=== PATIENT | male | born 1985 | race Caucasian/White ===

== ENCOUNTER 2016-10-19 22:20 | Emergency (ER) | payer SELFPAY | END 2016-10-19 23:10 | disposition left against medical advice (07) | LOC: ER1 22:20 | DX: Z53.21 Procedure and treatment not carried out due to patient leaving prior to being seen by health care provider (principal) ==

== ENCOUNTER 2016-12-15 22:23 | Emergency (ER) | payer OTHER | END 2016-12-16 00:05 | disposition home or self-care (01) | LOC: ER1 22:23 | DX: S61.552A Open bite of left wrist, initial encounter (principal); W54.0XXA Bitten by dog, initial encounter; Y92.009 Unspecified place in unspecified non-institutional (private) residence as the place of occurrence of the external cause; Z23 Encounter for immunization | CPT/HCPCS: 90714; 96372; 99283; J0690 ==

== ENCOUNTER → 2021-10-14 | Outpatient (CLI) | payer SELFPAY ==
[~2021-10-14] MED LIST: OMNICEF 300 MG300 MG PO
== END ==
LOC: HEART CORB 10:30
DX: R07.2 Precordial pain (principal); I10 Essential (primary) hypertension; E78.5 Hyperlipidemia, unspecified; R00.0 Tachycardia, unspecified; Z86.16 Personal history of COVID-19; I08.8 Other rheumatic multiple valve diseases
CPT/HCPCS: 93306